=== PATIENT | male | born 1940 | race Caucasian/White ===

== ENCOUNTER 2022-04-12 15:36 | Emergency (ER) | payer OTHER ==
[2022-04-12 15:46] VITALS: BP 161/72; PULSE 74; TEMP 98.2; BMI 20.5
[2022-04-12] MEDS ORDERED: FAMOTIDINE 20 MG TABLET PO ONE (16:15)
[2022-04-12] MEDS ORDERED: DEXAMETHASONE LIQUID 0.5 MG/5 ML PO ONE (16:15)
[2022-04-12] MEDS ORDERED: DEXAMETHASONE SOD PHOSPHATE 10 MG/1 ML VIAL ONE (16:19)
[2022-04-12] MEDS ORDERED: FAMOTIDINE 20 MG TABLET ONE (16:19)
== END 2022-04-12 16:43 | disposition home or self-care (01) ==
LOC: JERFT 15:36 → JER 15:36 → JERFT 16:43
DX: S60.561A Insect bite (nonvenomous) of right hand, initial encounter (principal); L08.9 Local infection of the skin and subcutaneous tissue, unspecified; W57.XXXA Bitten or stung by nonvenomous insect and other nonvenomous arthropods, initial encounter
CPT/HCPCS: 99283-25